=== PATIENT | female | born 1985 | race Caucasian/White ===

== ENCOUNTER 2022-10-30 23:28 | Emergency (ER) | payer BC, SELFPAY ==
[2022-10-30 23:34] VITALS: BP 147/97; PULSE 83; RESP 18; TEMP 36.3; O2SAT 98; BMI 30.5
--- NOTE | 2022-10-30 23:38 | ED.GENADULT ---
HPI - General Adult General Time Seen by Provider: 23:38 Date Seen: 10/30/22 Chief complaint: Chest Pain Stated complaint: Chest Pain Time Seen by Provider: 10/30/22 23:37 Source: patient, RN notes reviewed and old records reviewed Mode of arrival: ambulatory Limitations: no limitations History of Present Illness HPI narrative: 37-year-old female who presents today with chest pain. Patient works in the sleep lab, about 1 hour prior to coming the emergency department experienced some pain on the left upper chest for that last about a minute, initially with sharp and then felt burning radiating into the left shoulder. No shortness of breath, cough, nausea, or vomiting. Had a couple episodes like this so decided to come to the emergency department. No smoking, no hypertension, no diabetes. Takes Ativan to help with sleep. Related Data Home Medications Medication Instructions Recorded Confirmed lorazepam .ROUTE 10/30/22 omeprazole magnesium PO 10/30/22 Allergies Allergy/AdvReac Type Severity Reaction Status Date / Time Penicillins Allergy Mild Verified 10/30/22 23:48 Review of Systems Status of ROS: Reports: 10 or more systems reviewed and unremarkable except as noted in History and below [facility] Surgical History (Updated 10/30/22 @ 23:42 by Pooja Billings RN) History of appendectomy ?Z90.49 - Acquired absence of other specified parts of digestive tract (ICD-10) Social History Smoking Status: Never smoker Do you use any of these nicotine containing products: None Second hand tobacco smoke exposure: No How often do you have a drink containing alcohol: never AUDIT-C Alcohol total score: 0 Non-prescribed substance use: denies use service: No Exam Narrative: Exam Narrative: General: Well-developed and well-nourished, no acute distress Head: Atraumatic and normocephalic Eyes: Pupils are equal reactive, extraocular motions intact, conjunctiva clear ENT: External nose and ears are normal, posterior pharynx without erythema or exudate Neck: No midline cervical tenderness, full spontaneous range of motion the neck, trachea midline, no adenopathy Heart: Regular rate and rhythm no murmurs or thrills Lungs: Clear to auscultation bilaterally without wheezes or crackles Abdomen: Soft, nontender, nondistended with active bowel sounds Musculoskeletal: Point tenderness of the left upper chest wall and going into the left upper chest reproduces complaint Neurologic: Awake, alert, and oriented x3, no gross focal neurologic deficits, cranial nerves intact as tested Psych: Mood and affect are appropriate Skin: No rashes Const: Vital Signs, click to edit/add: Vital Signs - 24 hr 10/30/22 23:34 10/30/22 23:43 Temperature 97.3 F L Pulse Rate [Pulse Oximeter] 83 72 Respiratory Rate 18 16 Blood Pressure [Ri ght Upper Arm] 147/97 H 130/88 Pulse Oximetry 98 98 Oxygen Delivery Me thod Room Air Room Air Course Course Hospital Course: Patient seen examined, prior records reviewed. EKG ordered from triage reassuring. The patient presents today with chest pain lasted about a minute, left-sided in going into the left upper chest. Reproducible on exam here. Story is not typical for anginal pain, EKG is reassuring, and pain is reproducible. This likely represents musculoskeletal pain. Troponin and chest x-ray ordered and if these are negative, patient can be discharged. She will given Toradol and Decadron in the emergency department. Reevaluation(s) Time of Reevaluation #1: 00:25 Reevaluation #1: Chest x-ray independently interpreted by me does not demonstrate any acute findings. Time of Reevaluation #2: 00:35 Reevaluation #2: Labs independently interpreted by me with reassuring basic panel, troponin negative. Consider CT PE study or D-dimer but low risk Wells score and PERC negative. Stable for discharge with follow-up as needed. Vital Signs Vital signs: Initial Vital Signs Temperature 97.3 F L 10/30/22 23:34 Temperature Source Temporal Artery Scan 10/30/22 23:34 Pulse Rate 83 10/30/22 23:34 Pulse Rhythm Regular 10/30/22 23:34 Respiratory Rate 18 10/30/22 23:34 Blood Pressure 147/97 H 10/30/22 23:34 Blood Pressure Mean 113 H 10/30/22 23:34 Blood Pressure Position Supine 10/30/22 23:34 Pulse Oximetry 98 10/30/22 23:34 Oxygen Delivery Method Room Air 10/30/22 23:34 Vital Signs Temperature 97.3 F L 10/30/22 23:34 Pulse Rate 83 10/30/22 23:34 Respiratory Rate 18 10/30/22 23:34 Blood Pressure 147/97 H 10/30/22 23:34 Pulse Oximetry 98 10/30/22 23:34 Oxygen Delivery Method Room Air 10/30/22 23:34 Temperature 97.3 F L 10/30/22 23:34 Pulse Rate 72 10/30/22 23:43 Respiratory Rate 16 10/30/22 23:43 Blood Pressure 130/88 10/30/22 23:43 Pulse Oximetry 98 10/30/22 23:43 Oxygen Delivery Method Room Air 10/30/22 23:43 Medical Decision Making Medical Records Medical records reviewed: Yes I reviewed the patient's medical records Lab Data Lab results reviewed: Yes I reviewed the patient's lab results Labs: Lab Results 10/31/22 Range/Units 00:10 Sodium 136 (135-149) mmol/L Potassium 3.9 (3.6-5.1) mmol/L Chloride 103 (96-114) mmol/L Carbon Dioxide 24 (20-32) mmol/L BUN 15 (5-24) mg/dL Creatinine 0.8 (0.5-1.5) mg/dL Estimated Creat Clear 91.81 Estimated GFR 96 ml/min Glucose 98 (60-115) mg/dL Calcium 9.2 (8.4-10.6) mg/dL Magnesium 1.8 (1.5-2.6) mg/dL ECG Data Attestation: I personally reviewed and interpreted this ECG as follows: Prior ECG tracings: not available for review Interpretation: Performed at 11:33 p.m. demonstrates normal sinus rhythm rate 89, no acute ST elevations or depressions, normal intervals, normal axis, QTC 420. No prior for comparison. Discharge Plan Discharge Clinical Impression: Acute chest wall pain Patient Disposition: Home, Self-Care Condition: Stable Instructions: Chest Wall Pain (ED) Additional Instructions: Take Tylenol and ibuprofen as needed for pain. Apply ice 15-20 minutes at a time every 2 or 3 hours while awake for comfort. Follow-up with your primary care doctor this week. Discharge Diet: Regular Prescriptions: No Action lorazepam [Ativan] .ROUTE omeprazole magnesium [Prilosec OTC] PO Stand Alone Forms: [employer] Info Instructions
[2022-10-30 23:43] VITALS: BP 130/88; PULSE 72; RESP 16; O2SAT 98
[2022-10-31] MEDS: KETOROLAC 15 MG/ML inj IVP (00:02)
[2022-10-31] MEDS: dexAMETHasone 10 MG/ML inj IVP (00:03)
--- OUTSIDE RECORDS SUMMARY | 2022-10-31 00:09 | XMS_ITS | Continuity of Care Document ---
Author Name Unknown Organization [facility] Address [address] [address] [place] [address] Phone Care Team Providers Care Assistant Nurse Manager Name Role Phone Bigg Elliott MD, Abhi Maher e Advance Directives Directive Yes / No Effective Date File Name No Information Encounters Encounter Description Practice Location Reason(s) For Visit Diagnoses Date Provider Providers Copied on Encounter [facility], [address] [address], [place], [place], [id number], tel:[phone] [facility] No Information Bigg Moe. [address] [place] [address], [id number], [place]. tel:[phone] [facility], [address] [address], [place], [place], [id number], tel:[phone] [facility] No Information Bigg Moe. [address], [id number], [place]. tel:[phone] [facility] [place], [address] [address], [place], [id number], tel:[phone] [facility] No Information Bigg Moe. [address] [place] [address], [id number], [place]. tel:[phone] Family History Family Member Type Diagnosis Age At Onset No Information Immunizations Vaccine Date Status Comments Afluria Qd administered Note: [facility] bi-directional interface ; Source: Other Registry SARS-COV-2 (COVID-19) vaccin e, mRNA, spike protein, LNP, preservative free, 30 mcg/0.3mL dose administered Note: [facility] bi-direct ional interface ; Source: Other Registry SARS-COV-2 (COVID-19) vaccin e, mRNA, spike protein, LNP, preservative free, 30 mcg/0.3mL dose administered Note: [facility] bi-direct ional interface ; Source: Other Registry Afluria Qd administered Note: [facility] bi-directional interface ; Source: Other Registry Afluria Qd administered Note: [facility] bi-directional interface ; Source: Other Registry Afluria Qd administered Note: [facility] bi-directional interface ; Source: Other Registry tetanus toxoid, reduced diphtheria toxoid, and acellular pertussis vaccine, adsorbed administered Note: [facility] b i-directional interface ; Source: Other Registry Influenza, injectable,quadrivalent, preservative free, pediatric administered Note: [facility] bi-directional interface ; Source: Other Registry measles, mumps and rubella v irus vaccine administered Note: [facility] bi-direct ional interface ; Source: Other Registry measles, mumps and rubella v irus vaccine administered Note: [facility] bi-direct ional interface ; Source: Other Registry human papilloma virus vaccin e, quadrivalent administered Note: [facility] bi-direct ional interface ; Source: Other Registry human papilloma virus vaccin e, quadrivalent administered Note: [facility] bi-direct ional interface ; Source: Other Registry human papilloma virus vaccin e, quadrivalent administered Note: [facility] bi-direct ional interface ; Source: Other Registry human papilloma virus vaccin e, quadrivalent administered Note: [facility] bi-direct ional interface ; Source: Other Registry human papilloma virus vaccin e, quadrivalent administered Note: [facility] bi-direct ional interface ; Source: Other Registry human papilloma virus vaccin e, quadrivalent administered Note: [facility] bi-direct ional interface ; Source: Other Registry Payers Payer name Insurance type Covered libertarian ID Authoriza tion(s) No Information Social History Type Description Quantity Date Captured Comments Sex Female Smoking Status No Information Chief Complaint And Reason For Visit No Information Reason For Referral Reason For Referral No Information Plan Of Treatment Date Type Action Status No Information History Of Present Illness Encounter Date Complaint History Of Prese nt Illness No Information Functional Status Date Functional Assessmen t No Information Instructions Date Instruction Additional Infor mation No Information Assessments Type Assessment Date No Information Patient Care Teams Name Effective Dates (start - stop) Status Members No Information
--- OUTSIDE RECORDS SUMMARY | 2022-10-31 00:09 | XMS_ITS | Continuity of Care Document ---
Author Name Unknown Organization [facility] Address [address] [address] [place] [address] Phone Care Team Providers Care Corporate Secretary Name Role Phone Bigg Elliott MD, Abhi Maher e Advance Directives Directive Yes / No Effective Date File Name No Information Encounters Encounter Description Practice Location Reason(s) For Visit Diagnoses Date Provider Providers Copied on Encounter [facility], [address] [address], [place], [place], [id number], tel:[phone] [facility] No Information Bigg Moe. [address] [place] [address], [id number], [place]. tel:[phone] [facility], [address] [address], [place], [place], [id number], tel:[phone] [facility] No Information Bigg Moe. [address], [id number], [place]. tel:[phone] [facility] [place], [address] [address], [place], [id number], tel:[phone] [facility] No Information Bigg Moe. [address] [place] [address], [id number], [place]. tel:[phone] Family History Family Member Type Diagnosis Age [...] Registry Payers Payer name Insurance type Covered constitution party ID Authoriza tion(s) No Information Social History [...]
--- OUTSIDE RECORDS SUMMARY | 2022-10-31 00:09 | XMS_ITS | Patient Health Record ---
Author Name Unknown Organization [facility] Care Team Providers Care Serology Teacher Name Role Phone NeemaFelton nguyễnroberto Unavailable [phone] Adelina Manuel Unavailable [phone] PROBLEMS Type Condition ICD9-CM Code TMT18-MH Code Onset Dates Condition Status W/U Status Risk SNOMED Code Notes Problem Dysmenorrhea N94.6 confirmed 5353177 00 Problem Infertility, female N97.9 confirmed 9626849 Problem Missed menses N92.6 confirmed 783509 00 Problem Abnormal uterine bleeding N93.9 confirmed [id number] ALLERGIES Allergen (clinical drug ingredient) Drug/Non Drug Allergy documented on EMR Reaction Allergy Type Onset Date Status Penicillin Unknown Drug Allergy Active ENCOUNTERS from 1983 to 2022-10-31 Encounter Location Date Provider Diagnosis [address] [address] Oct, Juan Manuel Boles [address] [address] Jul, Lucero Shoemaker [address] [address] Jul, Moona Manoharaeli [place] [address] [place], [place] [phone] Jul, Moona Neemaazaeli [facility] [address] [place], [place] [id number] 10 Jul, 2022 Juan Manuel Boles Desire for Z31.9 [place] [address] [place], [place] [id number] Jul, Moroberto Villelaaeli Infertility, female N97.9 and Abnormal uterine bleeding N93.[address] [place] [address] Jul, Lucero Shoemaker [place] [address] [place], [place] [id number] Jun, Moroberto Lowryi [place] [address] [place], [place] [phone] May, Moroberto Bethealianageovannyi Abnormal uterine bleeding N93.9 ; Infertility, female N97.9 ; Right ovarian cyst N83.201 and Dysmenorrhea N94.[address] [address] May, Adelina Manuel [address] [address] May, Adelina Manuel [place] [address] [place], [place] [id number] May, Adelina Manuel [facility] [address] [place] [address] May, Adelina Manuel Abnormal bleeding in menstrual cycle N93.9 [place] [address] [place], [place] [phone] May, Adelina Manuel Abnormal uterine bleeding N93.9 [place] [address] [place], [place] [phone] May, Adelina Manuel Abnormal uterine bleeding (AUB) N93.9 ; Missed menses N92.6 ; INFERTILITY N97.9 and Bacterial Vaginosis N76.0 SOCIAL HISTORY Tobacco Use: Social History Observation Description Date Details (start date - stop date) Never Smoker Sex Assigned At : Social History Observation Description Sex Assigned At Unknown Tobacco Use/Smoking Question Answer Notes Are you a never smoker REASON FOR REFERRAL No Information VITAL SIGNS from 1983 to 2022-10-31 Height 67 in 10 Jul, 2022 Weight 198 lbs Jul, BMI 31.01 kg/m2 Jul, Blood pressure systolic 120 mm Hg Jul, Blood pressure diastolic 78 mm Hg Jul, MEDICATIONS Medication SIG (Take, Route, Frequency, Duration) Notes Start Date End Date Status CeleXA 10mg Active Tranexamic Acid 650 MG two tablets, duri ng menses Orally three times per day for 5 days May, Active Omeprazole Active Lorazepam Active RESULTS from 1983 to 2022-10-31 Component Value Reference Range Notes ANTI-MULLERIAN HORMONE ([facility]) , (Insurance Bill ONLY) Reviewed date:07/19/2022 12:18:21 Interpretation: Performing Lab:, [place] [facility] [id number], [id number] Anuj Telles M.D. Notes/Report: ANTI-MULLERIAN HORMONE ([facility]), FEMALE 0.09 ng/mL 0.18 -5.68 ng/mL CBC (INCLUDES DIFF/PLT) Reviewed date:05/17/2022 08:25:39 Interpretation: Performing Lab:, J[facility] [address], [facility] Blayne Leslie M.D. Notes/Report: ABSOLUTE BASOPHILS 53 cells/uL 0-200 cells/uL ABSOLUTE EOSINOPHILS 99 cells/uL 15-500 cells/uL ABSOLUTE LYMPHOCYTES 1809 cells/uL 850-3900 cells/uL ABSOLUTE MONOCYTES 676 cells/uL 200-950 cells/uL ABSOLUTE NEUTROPHILS 4963 cells/uL 8486-3405 cells/uL BASOPHILS 0.7 % EOSINOPHILS 1.3 % HEMATOCRIT 34.6 % 35.0-45.0 % HEMOGLOBIN 11.5 g/dL 11.7-15.5 g/dL LYMPHOCYTES 23.8 % MCH 27.4 pg 27.0-33.0 pg MCHC 33.2 g/dL 32.0-36.0 g/dL MCV 82.6 fL 80.0-100.0 fL MONOCYTES 8.9 % MPV 10.4 fL 7.5-12.5 fL NEUTROPHILS 65.3 % PLATELET COUNT 534 Thousand/uL 140-400 Thousand/uL RDW 13.6 % 11.0-15.0 % RED BLOOD CELL COUNT 4.19 Million/uL 3.80-5.10 Million /uL WHITE BLOOD CELL COUNT 7.6 Thousand/uL 3.8-10.8 Thousa nd/uL HCG, TOTAL, QUANT Reviewed date:05/17/2022 08:25:15 Interpretation: Performing Lab:, J[facility], [facility] [address], [facility] Blayne Leslie M.D. Notes/Report: HCG, TOTAL, QN <3 mIU/mL TSH Reviewed date:05/17/2022 08:25:24 Interpretation: Performing Lab:, JERAD, [facility] [address], [facility] Blayne Leslie M.D. Notes/Report: TSH 0.79 mIU/L Test, Urine Reviewed date:05/16/2022 15:00:45 Interpretation:Negative Performing Lab: Notes/Report: Test, Urine Negative Negative - REASON FOR VISIT No Information MEDICAL (GENERAL) HISTORY Type Description Date Surgical History Appendectomy MENTAL STATUS No Information ASSESSMENTS Encounter Date Diagnosis Assessment Notes Treatment Notes Treatment Clinical Notes Jul, Infertility, female (ICD-10 - N97.9) Jul, Desire for (ICD-10 - Z31.9) Jul, Abnormal uterine bleeding (ICD-10 - N93.9) Again reviewed components of a feritility work up. Recommend checking ovarian reserve with [facility], reviewed limitations of this test. Also will check cycle day 21 progesterone for ovulation, but given that this cycle is irregular will wait. Discussed HSG to assess for tubal patency; will hold on this as she has no RF for tubal obstruction (aside from h/o appy but she conceived after this). Finally, recommend semenanalysis. For now, plan for AMH. Will resume fertility discussion after hysteroscopy. 15 minutes spent reviewing prior documentation, patient counseling, and documentation. May, Abnormal uterine bleeding (ICD-10 - N93.9) TVUS demonstrates two submucosal fibroids that are likely the source of her AUB. Further, discussed that submucosal fibroids are implicated in subfertility. In general could consider medical or surgical management for fibroid bleeding, however if fertility is a priority would recommend surgical management. Patient is hesitant about surgery at this time and wants to consider while undergoing fertility work up. Does not want hormonal management for bleeding, so will try tranexamic acid. May, Infertility, female (ICD-10 - N97.9) Reviewed components of a feritility work up. Given regular mesnes she is likely ovulatory but could check objectively with cycle day 21 progesterone. Recommend checking ovarian reserve with [facility], reviewed limitations of this test. Discussed HSG to assess for tubal patency; will hold on this as she has no RF for tubal obstruction (aside from h/o appy but she conceived after this). Finally, recommend semenanalysis. For now, plan for cycle day 21 and AMH. May, Right ovarian cyst (ICD-10 - N83.201) Incidental finding. Patient asymptomatic, cyst is small in size, and has no concerning features. Therefore recommend observation. Would repeat US in 3-4 months, if cyst grows/persists could consider surgical management in the future but at this point risks outweigh benefits. May, Dysmenorrhea (ICD-10 - N94.6) May, Other 40 minutes spen t in review of imaging, patient care, and documentation. May, Abnormal uterine bleeding (AUB) (ICD-10 - N93.9) UPT, CBC, TSH, and BHCG today. Declines STI screening. Appears hemodynamically stable. Able to get in for ultrasound after today's visit and will formulate final plan based on those results. Continue metroniadazole for BV. Discussed provera 20mg TID x 7 days to cease bleeding. Can take ibuprofen 600mg Q6 hours for cramping. Recommend eval with MD to discuss fertility/endometrios is concerns. _update: UPT negative. Ultrasound after visit showed 3 small ill defined fibroids (intracavity vs submucosal x 2, and 1 left intramural). Endometrium ill defined ~11mm. R ovary complex cystic mass hypoechoic w/ multiple septations. Agrees to MD consult for management, desires to conceive. Proceed with provera 20mg TID x 7 days until then. Continue metroniadazole. May, Missed menses (ICD-10 - N92.6) May, Abnormal uterine bleeding (ICD-10 - N93.9) May, Abnormal bleeding in menstrual cycle (ICD-10 - N93.9) May, INFERTILITY (ICD-10 - N97.9) May, Bacterial Vaginosis (ICD-10 - N76.0) PLAN OF TREATMENT Treatment Notes Assessment Notes Clinical Notes Abnormal uterine bleeding (AUB) UPT, CBC , TSH, and BHCG today. Declines STI screening. Appears hemodynamically stable. Able to get in for ultrasound after today's visit and will formulate final plan based on those results. Continue metroniadazole for BV. Discussed provera 20mg TID x 7 days to cease bleeding. Can take ibuprofen 600mg Q6 hours for cramping. Recommend eval with MD to discuss fertility/endometriosis concerns. _update: UPT negative. Ultrasound after visit showed 3 small ill defined fibroids (intracavity vs submucosal x 2, and 1 left intramural). Endometrium ill defined ~11mm. R ovary complex cystic mass hypoechoic w/ multiple septations. Agrees to MD consult for management, desires to conceive. Proceed with provera 20mg TID x 7 days until then. Continue metroniadazole. Abnormal uterine bleeding TVUS demonstra pippa two submucosal fibroids that are likely the source of her AUB. Further, discussed that submucosal fibroids are implicated in subfertility. In general could consider medical or surgical management for fibroid bleeding, however if fertility is a priority would recommend surgical management. Patient is hesitant about surgery at this time and wants to consider while undergoing fertility work up. Does not want hormonal management for bleeding, so will try tranexamic acid. Infertility, female Reviewed components of a feritility work up. Given regular mesnes she is likely ovulatory but could check objectively with cycle day 21 progesterone. Recommend checking ovarian reserve with AM[facility], reviewed limitations of this test. Discussed HSG to assess for tubal patency; will hold on this as she has no RF for tubal obstruction (aside from h/o appy but she conceived after this). Finally, recommend semenanalysis. For now, plan for cycle day 21 and AMH. Abnormal uterine bleeding Again reviewed components of a feritility work up. Recommend checking ovarian reserve with AM[facility], reviewed limitations of this test. Also will check cycle day 21 progesterone for ovulation, but given that this cycle is irregular will wait. Discussed HSG to assess for tubal patency; will hold on this as she has no RF for tubal obstruction (aside from h/o appy but she conceived after this). Finally, recommend semenanalysis. For now, plan for AMH. Will resume fertility discussion after hysteroscopy. 15 minutes spent reviewing prior documentation, patient counseling, and documentation. Right ovarian cyst Incidental finding. Patient asymptomatic, cyst is small in size, and has no concerning features. Therefore recommend observation. Would repeat US in 3-4 months, if cyst grows/persists could consider surgical management in the future but at this point risks outweigh benefits. Insurance Providers Payer Name Payer Address Payer Phone Insured Name Patient Relationship to Insured Coverage Start Date Coverage End Date Subscriber Number Group Number [employer] [address] [address] [facility] [id number] Paula Talbot Self - patient is the insured [id number]
--- NOTE | 2022-10-31 00:10 | CRLHL7_ITS ---
For Patients: As a result of the Century Cures Act, medical imaging exams and procedure reports are released immediately into your electronic medical record. You may view this report before your referring provider. If you have questions, please contact your health care provider. INDICATION: Chest pain. TECHNIQUE: Chest 2 views. COMPARISON: None. FINDINGS: Cardiovascular and mediastinum: Heart size and vasculature are normal in caliber and appearance. Lungs and pleural spaces: Lungs are clear. No sign of infiltrate or mass. No sign of pleural effusion. No pneumothorax. Bones and soft tissues: No significant findings. IMPRESSION: No acute or significant findings. Dictated by Vasyl Mejia MD @ 10/31/2022 1:05:06 AM (Electronically Signed)
[2022-10-31 00:25] LABS: Chloride* 103 mmol/L (96-114); Potassium* 3.9 mmol/L (3.6-5.1); Sodium* 136 mmol/L (135-149)
[2022-10-31 00:27] LABS: Creatinine* 0.8 mg/dL (0.5-1.5); Est. Creatinine Clearance* 91.81; Estimated Glomerular Filt Rate 96 ml/min
[2022-10-31 00:28] LABS: Blood Urea Nitrogen* 15 mg/dL (5-24); Carbon Dioxide* 24 mmol/L (20-32); Glucose* 98 mg/dL (60-115)
[2022-10-31 00:29] LABS: Calcium* 9.2 mg/dL (8.4-10.6); Magnesium* 1.8 mg/dL (1.5-2.6)
[2022-10-31 00:40] VITALS: BP 130/88; PULSE 77; RESP 18
== END 2022-10-31 00:40 | disposition home or self-care (01) ==
PROVIDERS: Emergency Provider Family Medicine
DX: R07.89 Other chest pain (principal)
CPT/HCPCS: 36415; 71046; 80048; 83735; 84484; 96374; 96375; 99284; J1100; J1885